=== PATIENT | female | born 1945 | race Two or more races ===

== ENCOUNTER → 2020-05-10 | Outpatient (CLI) | payer OTHER | END | disposition home or self-care (01) | LOC: OFIC 805 12:14 | PROVIDERS: ATTEND Otolaryngology | DX: R09.82 Postnasal drip (principal); G50.1 Atypical facial pain; J32.8 Other chronic sinusitis; R09.81 Nasal congestion ==

== ENCOUNTER → 2020-06-08 | Outpatient (CLI) | payer OTHER | END | disposition home or self-care (01) | LOC: OFIC 805 09:00 | PROVIDERS: ATTEND Otolaryngology | DX: R09.82 Postnasal drip (principal); G50.1 Atypical facial pain; R09.81 Nasal congestion; J32.8 Other chronic sinusitis; J34.2 Deviated nasal septum ==

== ENCOUNTER 2022-01-16 07:44 | Outpatient (CLI) | payer OTHER | END 2022-01-16 07:48 | disposition home or self-care (01) | LOC: RX STUDY 07:44 | PROVIDERS: ATTEND Internal Medicine Gastroenterology | DX: R13.12 Dysphagia, oropharyngeal phase (principal) ==

== ENCOUNTER 2022-02-01 09:11 | Outpatient (CLI) | payer OTHER | END 2022-02-01 09:27 | disposition home or self-care (01) | LOC: TOM 09:11 | PROVIDERS: ATTEND Internal Medicine Gastroenterology | DX: R13.12 Dysphagia, oropharyngeal phase (principal); M65.811 Other synovitis and tenosynovitis, right shoulder; M65.812 Other synovitis and tenosynovitis, left shoulder; M25.511 Pain in right shoulder; M25.512 Pain in left shoulder; M25.611 Stiffness of right shoulder, not elsewhere classified; M25.612 Stiffness of left shoulder, not elsewhere classified ==